=== PATIENT | female | born 1995 | race Caucasian/White ===

== ENCOUNTER 2016-07-19 20:28 | Emergency (ER) | payer OTHER ==
[~2016-07-19 20:28] MED LIST: ADVAIR INHALER; ALBUTEROL17 G1; ALBUTEROL17 GM INH; AMOXICILLIN500 M1 PO; CLARITIN10 MG PO; CLINDAMYCIN HC300 MG PO; DEPO-PROVE150 MG/1 M IM; DICYCLOMINE HCL20 MG; FLONASE16 GM; IMPLANON; KEFLEX500 MG PO; MACROBID100 MG PO; MAGIC MOUTHWASH PO; NAPROSYN250 M1 PO; NAPROXEN PO; NO MEDICATIONS; OMEPRAZOLE40 M1; OMEPRAZOLE40 M1 PO; ORTHO TRI-7 DAYS X; PHENERGAN12.5 MG PO; PHENERGAN25 MG PO; POLYSPORIN15 GM EXT; PRILOSEC PO; SINGULAIR PO; SKELAXIN PO; SPRINTEC PO; SUDAFED60 MG PO; VOLTAREN75 MG PO; ZITHROMAX PO; ZOFRAN ODT4 MG SL; ZYRTEC10 M2 PO
[2016-07-19 20:51] LABS: URINE SOURCE CLEAN CATCH
[2016-07-19 20:55] LABS: URINE APPEARANCE CLEAR; URINE BILIRUBIN NEG (NEG); URINE BLOOD TRACE-INTACT (NEG); URINE COLOR YELLOW; URINE GLUCOSE NEG (NORM); URINE KETONE NEG (NEG); URINE LEUKOCYTE ESTERASE NEG (NEG); URINE NITRATE NEG (NEG); URINE PH 7.5 (5-8); URINE PROTEIN NEG (NEG)
[2016-07-19 20:59] LABS: MICRO INDICATED? YES
[2016-07-19 21:07] LABS: URINE BACTERIA 1+ (NEG); URINE SQUAMOUS EPITHELIAL CELL MODERATE /[HPF]
[2016-07-19 21:08] LABS: URINE MUCUS PRESENT; URINE YEAST PRESENT
[2016-07-22 16:39] LABS: CHLAMYDIA TRACH Not Detected (Not Detected); N GONOR Not Detected (Not Detected)
== END 2016-07-19 23:19 | disposition home or self-care (01) ==
LOC: SED 20:28
PROVIDERS: Emergency Medicine
DX: O98.811 Other maternal infectious and parasitic diseases complicating pregnancy, first trimester (principal); Z87.891 Personal history of nicotine dependence
CPT/HCPCS: 36415; 81003; 84702; 87210; 87491; 87591; 87808; 87905; 99284